=== PATIENT | male | born 1995 | race Caucasian/White ===

== ENCOUNTER 2019-10-20 12:51 | Emergency (ER) | payer SELFPAY ==
[2019-10-20 12:58] VITALS: BP 120/72; PULSE 64; TEMP 36.6; O2SAT 97
--- NOTE | 2019-10-20 13:35 | DI.RAD_ITS ---
EXAM: XR HAND RT COMPLETE CLINICAL HISTORY: pain, fall, injury. TECHNIQUE: 2D digital imaging was performed. COMPARISON: No exams were available for comparison FINDINGS: BONES: No acute fracture is present. No bony destructive lesion is seen. JOINTS: No dislocation present. SOFT TISSUE: Normal. IMPRESSION: Unremarkable radiographs of the right hand. DATA REPOSITORY: RADIATION DOSE DELIVERED:
--- NOTE | 2019-10-20 13:35 | DI.RAD_ITS ---
EXAM: XR WRIST RT COMPLETE CLINICAL HISTORY: pain, fall, injury. TECHNIQUE: 2D digital imaging was performed. COMPARISON: No exams were available for comparison FINDINGS: BONES: No acute fracture is present. No bony destructive lesion is seen. JOINTS: The carpal bones are normally aligned. SOFT TISSUE: Normal. IMPRESSION: Unremarkable radiographs of the right wrist. DATA REPOSITORY: RADIATION DOSE DELIVERED:
--- NOTE | 2019-10-22 16:53 | ED.GENADUL_ITS ---
Discharge Plan Disposition Patient Disposition: HOME Condition: Stable Discharge Details Chief Complaint: Orthopedic Clinical Impression: Sprain, Contusion Primary Care Provider: Michael Sibley ED Provider: Geetha Stephens Home Meds and New Rx's Prescriptions: No Action rizatriptan [Maxalt] 5 MG tablet 1 tab PO PRN RF: 0 ibuprofen 200 MG tablet 800 mg PO PRN PRNRF: 0 acetaminophen [Tylenol] 325 MG tablet 325 mg PO PRN PRNRF: 0 Discharge Instructions Instructions: Contusion in Adults (ED) Additional Instructions: Rest. Activities as tolerated. Elevate injury to prevent swelling. Ice to the area of discomfort for 15 min. 3-5 times daily. Motrin every 8 hours with food or Tylenol every 6 hours for soreness if needed over the counter for comfort. Followup with orthopedic doctor as discussed if not improving in one week. Return for any worsening or concerns sooner if needed. Referrals: Angel Jeong MD [ [facility] STAFF PHYSICIAN] - Discharge Data Discharge Date/Time-TO BE ENTERED AT DEPARTURE: 10/20/19 15:18 Medical Decision Making This is a pleasant 24-year-old patient presenting to the emergency room for complaints of hand pain. Patient reports when he was snowboarding he acc identally struck his right hand against a tree when falling backwards. Patient denies striking head neck or back. Patient denies any other sites of pain or concerns. Injury occurred 4 days ago. Patient reports due to persistence of his pain he is seeking evaluation to rule out fracture. Patient denies numbness, tingling or weakness. Patient is concerned with the swelling, ecchymosis and persistent pain when ranging hand. Patient has no specific limitations to range of motion. On exam is notable tenderness to the dorsal aspect of his hand associated with swelling and bruising. Distal n eurovascularly intact and nothing to indicate a ligamentous injury at this time. No open wounds. Will obtain x-rays of the hand and wrist. X-rays unremarkable for identifiable fracture. Discussed splinting. Patient feels most comfortable in a volar wrist splint. Rice encouraged. Conservative treatments discussed. Expected improvement in 1 week discussed. Patient agrees with plan of care. Referral to orthopedics provided if not improving as expected. Patient reports his understanding and agrees with plan of care. The patient was stable and requested discharge. Prior to discharge, my usual and customary return precautions were reviewed with the patient - this included follow-up instructions and reasons to return to the Emergency Department if conditions worsens, does not improve as expected, or other new concerns arise. HPI General Date/Time Provider Initiated Documentation: 10/20/19 13:03 . HPI Narrative: This is a very pleasant 24-year-old patient presenting to the emergency room after injuring his right hand while snowboarding. Patient reports he fell back wards striking his hand on a tree. Patient denies any open wounds. Patient reports injury occurred 4 days ago. Patient reports swelling and bruising present. Patient does report increase in pain after using the hand. Denies numbness, tingling or weakness. Concerned with the possibility of fracture due to persistence of pain. Related Data Home Medications Medication Instructions Recorded Confirmed rizatriptan [Maxalt] 1 tab PO PRN 06/23/13 10/20/19 ibuprofen 800 mg PO PRN PRN 06/01/15 10/20/19 acetaminophen [Tylenol] 325 mg PO PRN PRN 03/13/17 10/20/19 Allergies Allergy/AdvReac Type Severity Reaction Status Date / Time No Known Allergies Allergy Verified 10/20/19 13:01 General Stated Complaint: Orthopedic LANEY: 4 Review of Systems All systems reviewed & are unremarkable except as noted in HPI and below Constitutional Constitutional: Denies headache(s) ENT Ears, Nose, Mouth, and Throat: Denies headache(s) and Denies neck pain Musculoskeletal Musculoskeletal: Denies back pain, Denies deformity, Denies limited range of motion, Denies neck pain, Denies numbness, Denies radiating pain into limb and Denies tingling Integumentary/Breasts Skin/Breast: Denies wounds Neurologic Neurologic: Denies headache(s), Denies numbness, Denies tingling and Denies paresthesias [facility] Medical History Cerebral palsy (Acute) speech and right arm effected Surgical History (Updated 03/18/17 @ 11:04 by Medina Charles) Biopsy, Lymph Node (08/03/14) DR. LAMAS; RIGHT AXILLARY BUNIONECTOMY 03/13/17-DR. GREEN;RIGHT Family History Mother Tremor Father Essential hypertension Hyperlipidemia Myocardial infarction Grandfather Personal history of malignant neoplasm COLON Myocardial infarction Abdominal aortic aneurysm Grandmother Essential hypertension Diabetes Social History Smoking/Tobacco Use Status: Former Tobacco Use Alcohol Intake: current Alcohol Intake frequency: holidays/special occasions only Drug use: Daily Substance use type: marijuana Do you feel safe at home: Yes Do you feel safe in your relationship?: Yes Exam Narrative Exam Narrative: CONST: Healthy appearing patient, in no acute distress. Well hydrated. Alert and oriented. NECK: Normal visual inspection. FROM. Trachea midline. No Midline tenderness. MUSCULOSKELETAL: Normal Gait. FROM of all extremities. Right arm: No pain proximal to wrist. Mild palpable tenderness elicited to the dorsal aspect of the wrist on both radial and ulnar aspects. Patient with ecchymosis and swelling noted to the lateral dorsal aspect of the right hand. Patient has notable tenderness with palpation along the second third fourth and fifth metacarpals. Mild digit tenderness throughout the second third fourth and fifth metacarpals. No significant snuffbox pain. Full range of motion of the hand. Nothing to indicate ligamentous injury. No open wounds. Distal neurovascularly intact. Sensation intact throughout hand. Left arm and bilateral lower extremity exam normal SKIN: Normal. Dry. No rashes. NEURO: Alert and awake. Speech clear. PSYCH: Normal affect. Cooperative. Course Vital Signs Vital signs: Vital Signs Temperature 36.6 C 10/20/19 12:58 Pulse 64 10/20/19 12:58 Blood Pressure 120/72 10/20/19 12:58 Pulse Oximetry 97 10/20/19 12:58 Temperature 36.6 C 10/20/19 12:58 Temperature Source Temporal Artery Scan 10/20/19 12:58 Pulse 64 10/20/19 12:58 Respiratory Effort Non-Labored 10/20/19 12:59 Blood Pressure 120/72 10/20/19 12:58 Blood Pressure Position Sitting 10/20/19 12:58 Pulse Oximetry 97 10/20/19 12:58 Oxygen Delivery Method Room Air 10/20/19 12:58 Oxygen Flow Rate 0 10/20/19 12:58 Pain Level 6 10/20/19 12:59
== END 2019-10-20 15:18 | disposition home or self-care (01) ==
PROVIDERS: Emergency Provider Physician Assistant; PCP Family Medicine
DX: S60.221A Contusion of right hand, initial encounter (principal); S63.501A Unspecified sprain of right wrist, initial encounter; V00.312A Snowboarder colliding with stationary object, initial encounter; Y93.23 Activity, snow (alpine) (downhill) skiing, snowboarding, sledding, tobogganing and snow tubing; G80.9 Cerebral palsy, unspecified
CPT/HCPCS: 99284; 73110; 73130; 99283; L3908

== ENCOUNTER 2020-02-22 11:56 | Emergency (ER) | payer OTHER, SELFPAY ==
[2020-02-22 12:03] VITALS: BP 129/83; PULSE 79; RESP 18; TEMP 36.4; O2SAT 98
--- NOTE | 2020-02-22 12:13 | ED.GENADUL_ITS ---
Discharge Plan Disposition Patient Disposition: HOME Condition: Stable Discharge Details Chief Complaint: Laceration Clinical Impression: Laceration of thumb Primary Care Provider: Michael Sibley ED Provider: Jesus Nickerson Home Meds and New Rx's Prescriptions: Continued rizatriptan [Maxalt] 5 MG tablet 1 tab PO PRN RF: 0 ibuprofen 200 MG tablet 800 mg PO PRN PRNRF: 0 acetaminophen [Tylenol] 325 MG tablet 325 mg PO PRN PRNRF: 0 Discharge Instructions Instructions: Laceration (ED) Additional Instructions: At this time no sutures are indicated. Tetanus has been updated. Keep the area clean and dry, change antibiotic dressing daily. Watch for new or worsening symptoms and return to the ER for any concern Medical Decision Making Upon reviewing records, last tetanus update was 2006. Will update now. This is a rather small, superficial, avulsion laceration. X-ray and or closure not indicated. The avulsion laceration was cleaned, dressed. Patient tolerated well. He has no additional questions or concerns. The laceration will need to heal by secondary means. Medical Records Medical records reviewed: Yes I reviewed the patient's medical records. HPI General Mode of arrival: ambulatory . Date/Time Provider Initiated Documentation: 02/22/20 11:58 . Limitations to Documentation: no limitations . Information obtained by: patient . HPI Narrative: This is a 24-year-old gentleman, [id number], presenting to the ER with a laceration to his left thumb. This occurred just prior to arrival while at work on a band saw. He reports mild pain. Denies numbness, tingling, weakness, or any other injury. Unsure of his tetanus status. Related Data Home Medications Medication Instructions Recorded Confirmed rizatriptan [Maxalt] 1 tab PO PRN 06/23/13 02/22/20 ibuprofen 800 mg PO PRN PRN 06/01/15 02/22/20 acetaminophen [Tylenol] 325 mg PO PRN PRN 03/13/17 02/22/20 Allergies Allergy/AdvReac Type Severity Reaction Status Date / Time No Known Allergies Allergy Verified 02/22/20 12:07 General Stated Complaint: Laceration LANEY: 4 Review of Systems Constitutional Constitutional: Denies weakness Musculoskeletal Musculoskeletal: Denies numbness and Denies tingling Integumentary/Breasts Skin/Breast: Denies rash Neurologic Neurologic: Denies numbness, Denies tingling and Denies weakness Hematologic/Lymphatic Hematologic/Lymphatic: Denies easy bleeding and Denies easy bruising [facility] Medical History Cerebral palsy (Acute) speech and right arm effected Surgical History Biopsy, Lymph Node (08/03/14) DR. LAMAS; RIGHT AXILLARY BUNIONECTOMY 03/13/17-DR. GREEN;RIGHT Family History Mother Tremor Father Essential hypertension Hyperlipidemia Myocardial infarction Grandfather Personal history of malignant neoplasm COLON Myocardial infarction Abdominal aortic aneurysm Grandmother Essential hypertension Diabetes Social History Smoking/Tobacco Use Status: Current every day Tobacco Type: cigarettes Alcohol Intake: current Alcohol Intake frequency: a few times a month Drug use: Daily Substance use type: marijuana Do you feel safe at home: Yes Do you feel safe in your relationship?: Yes Exam Extrem Hand/finger images: 1. There is a 0.5 cm avulsion laceration, superficial in nature. The nailbed is not involved. There is no active bleeding or obvious foreign body. Neuro, vascular, tendon intact Course Vital Signs Vital signs: Vital Signs Temperature 36.4 C L 02/22/20 12:03 Pulse 79 02/22/20 12:03 Respiratory Rate 18 02/22/20 12:03 Blood Pressure 129/83 02/22/20 12:03 Pulse Oximetry 98 02/22/20 12:03 Temperature 36.4 C L 02/22/20 12:03 Pulse 79 02/22/20 12:03 Respiratory Rate 18 02/22/20 12:03 Respiratory Effort Non-Labored 02/22/20 12:05 Blood Pressure 129/83 02/22/20 12:03 Blood Pressure Position Sitting 02/22/20 12:03 Pulse Oximetry 98 02/22/20 12:03 Oxygen Delivery Method Room Air 02/22/20 12:03 Oxygen Flow Rate 0 02/22/20 12:03 Pain Level 4 02/22/20 12:03
--- NOTE | 2020-02-22 12:15 | NUR.NOTE ---
Nursing Note:Wound cleaned and dressed with Non-adherent gauze and antibiotic gauze.
== END 2020-02-22 12:30 | disposition home or self-care (01) ==
PROVIDERS: Emergency Provider Physician Assistant; PCP Family Medicine
DX: S61.011A Laceration without foreign body of right thumb without damage to nail, initial encounter (principal); W31.2XXA Contact with powered woodworking and forming machines, initial encounter; Y99.0 Civilian activity done for income or pay
CPT/HCPCS: 90471; 99284; 99283

== ENCOUNTER 2020-03-30 16:04 | Outpatient (REF) | payer SELFPAY ==
--- NOTE | 2020-03-30 15:20 | SKI_PTH ---
PATIENT: Carlton Christensen LOC: [facility] U#:[id number] AGE/SX: 24/M ROOM: RE03/30/[address]: Leidy Sanabria : 1995 BED: DIS: 03/30/2020 SPEC #: [id number] RECD: 03/30/20 16:40 STATUS: CINDY REQ #: [id number] HAYLEE: 03/30/20 15:[address]: Leidy Sanabria DEPT: Surgical Specimen RECD BY: Juani Goodwin ENTERED: 03/30/20 16:42 SP TYPE: SEA NICOLAS DR: Michael Sibley MD Tissues: 1 - SKIN BIOPSY(SHAVE/PUNCH) Procedures: SKIN LEVEL 4 Comments: [id number]
== END 2020-03-30 16:24 ==
LOC: LBN 16:04
PROVIDERS: PCP Family Medicine; Visit Provider Surgery
DX: L85.9 Epidermal thickening, unspecified (principal); D36.7 Benign neoplasm of other specified sites
CPT/HCPCS: 88305

== ENCOUNTER 2023-01-13 16:12 | Emergency (ER) | payer OTHER, SELFPAY ==
[2023-01-13 16:30] VITALS: BP 123/86; PULSE 85; RESP 18; TEMP 37.5; O2SAT 99
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
[2023-01-13] MEDS: Ketorolac 15 MG/ML VIAL IVP (16:59)
[2023-01-13 17:02] LABS: Abs Immature Grans 0.04 10^3/uL (0.0-0.06); Absolute Basophil Count 0.03 10^3/uL (0.0-0.2); Basophils % 0.2; Eosinophils % 0.1; HCT 44.7 % (40.0-50.0); HGB 15.7 g/dL (13.5-17.5); Immature Grans % 0.3; Lymphocytes % 13.3; MCH 29.7 pg (27.0-33.0); MCHC 35.1 % (32.0-36.0); MCV 85 fL (80-95); MPV 9.3 fL (8.0-11.0); Monocytes % 5.5; Neutrophils % 80.6; Platelet Count 217 10^3/uL (130-400); RBC 5.28 10^6/uL (4.36-5.78); RDW 11.9 % (11.8-14.1); RDW-SD 36.3 fL; WBC 13.56 10^3/uL (4.4-10.8)
[2023-01-13 17:05] LABS: Absolute Eosinophil Count 0.01 10^3/uL (0.0-0.7); Absolute Monocyte Count 0.75 10^3/uL (0.1-0.8); Absolute Neutrophil Count 10.93 10^3/uL (1.2-6.7)
[2023-01-13 17:27] LABS: ALT 21 U/L (16-63); AST 17 U/L (15-37); Albumin 4.4 g/dL (3.4-5.0); Alkaline Phosphatase 51 U/L (46-116); Anion Gap 9.4 mmol/L (3-11); BUN 14 mg/dL (7-18); Bilirubin, Total 1.1 mg/dL (0.2-1.0); CO2 29.6 mmol/L (21.0-32.0); Calcium 9.3 mg/dL (8.5-10.1); Chloride 104 mmol/L (98-107); Estimated GFR 104.48 (mL/min/1.73m2); Glucose 145 mg/dL (74-106); Potassium 3.8 mmol/L (3.5-5.1); Sodium 143 mmol/L (136-145); Total Protein 7.7 g/dL (6.4-8.2)
[2023-01-13 17:28] LABS: ETHANOL BLOOD < 3.0 mg/dL (<10)
[2023-01-13] MEDS: Omnipaque 350 MG/ML 100 ML BTL IJ (17:46)
[2023-01-13] MEDS: Normal Saline - Diluent 50 ML VIAL IJ (17:47)
[2023-01-13 18:17] LABS: Bilirubin Negative (Negative); Blood Trace-intact (Negative); Clarity Clear (Clear); Glucose Negative (Negative); Ketones Negative (Negative); Leukocyte Esterase Negative (Negative); Nitrite Negative (Negative); Urobilinogen 0.2 mg/dL (Up to 0.2)
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
[2023-01-13 18:24] LABS: Bacteria Negative HPF (Negative); C & S Indicated? No; Casts Negative LPF (Negative); Crystals Negative HPF (Negative); Epithelial Cells Rare HPF (Negative); Mucus Negative (Negative); RBC 0-2 HPF (0-2); WBC 0-2 HPF (0-5)
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
[2023-01-13] MEDS: Cyclobenzaprine 10 MG TAB, 3 TABS/BTL PO (21:16)
== END 2023-01-13 21:21 | disposition home or self-care (01) ==
PROVIDERS: Emergency Provider Nurse Practitioner Family; PCP Family Medicine
DX: S00.412A Abrasion of left ear, initial encounter (principal); S60.511A Abrasion of right hand, initial encounter; S80.812A Abrasion, left lower leg, initial encounter; S80.811A Abrasion, right lower leg, initial encounter; V89.2XXA Person injured in unspecified motor-vehicle accident, traffic, initial encounter
CPT/HCPCS: 74177; 80053; 96374; 99285; 70450; 71260; 72125; 80320; 81003; 81015; 83735; 85025; 99284; J1885; J3490